=== PATIENT | male | born 2000 | race Caucasian/White ===

== ENCOUNTER 2018-01-26 10:59 | Emergency (ER) | payer SELFPAY ==
[2018-01-26 11:00] VITALS: BP 147/72; PULSE 116; RESP 22; TEMP 36.2; O2SAT 95; BMI 25.5
--- NOTE | 2018-01-26 11:11 | ED.DCSUM_ITS ---
- ER Visit Summary Date of Service: 01/26/18 Chief Complaint: Tailbone pain, a possible pilonidal cyst or abscess History of Present Illness: The patient is a 17 M prior pilonidal cyst. Patient states that the last 2 days had pain swelling on his tailbone. No trauma. No fever. Her history of a similar pilonidal abscess versus which he drained himself. Physical Examination: Well-appearing young male. Vital signs stable afebrile. Exam normal except distal end of his lower back tailbone the proximal buttocks he has what appears to be a pilonidal abscess. Swollen and tender. There is no surrounding cellulitis. This will need to be drained. Test Results: None Emergency Department Course and Treatment: Area will be locally anesthetized with let and then infiltrated with lidocaine. Cleaned with Shur-Clens. Incised and drained. Treatment Plan: Main 1 inch incision in the pilonidal abscess. Greater than 5 cc of pus was expressed. I probed the wound and broke up any loculations. Expressed blood and pus. And placed about 4-5 inches of quarter inch packing gauze. Patient tolerated procedure well. He was given instructions. Pull the packing 5 days. He will be treated with Keflex 500 mg 4 times daily for 7 days. Follow-up his primary care physician. Disposition: Discharge Impression: Acute pilonidal abscess Incision and drainage by ER physician This note was generated with [employer] dictation software. It may contain incorrect words, spelling, and punctuation that were not noted in review of the chart prior to signing ED Disposition - Plan for ED Patient: Disposition: Home or Assisted Living Chief Complaint: Wound Instructions: ED Cyst Pilonidal Infected IandD Prescriptions: Cephalexin [Keflex] 500 mg PO Q6 #30 cap Referrals: Sadiq Ash MD [Primary Care Provider] - 1 Week if not improving Additional Instructions: Motrin and Tylenol for pain. Warm soaks. Pull the packing out in 5 days. Keflex 1 pill 4 times a day for 1 week.
[2018-01-26] MEDS: Lidocaine/Epi/Tetracaine 50 ML 1 APPLIC TOPICAL (11:20)
[2018-01-26] MEDS: Cephalexin 250 MG Capsule 500 MG PO (12:24)
== END 2018-01-26 12:33 | disposition home or self-care (01) ==
PROVIDERS: Emergency Provider Emergency Medicine; Family Provider Family Medicine; PCP Family Medicine
DX: L05.01 Pilonidal cyst with abscess (principal)
CPT/HCPCS: 11770; 99283